=== PATIENT | female | born 1980 | race Caucasian/White ===

== ENCOUNTER 2018-06-15 18:22 | Emergency (ER) | payer OTHER ==
--- NOTE | 2018-06-15 19:35 | RADIOLOGY REPORT ---
EXAMINATION: RIGHT HAND AND RIGHT WRIST. CLINICAL INFORMATION: Sprain. COMPARISON: None TECHNIQUE: 4 views right wrist and 3 views right hand. FINDINGS: RIGHT WRIST: There is no visible acute fracture, dislocation or subluxation. No soft tissue swelling seen. RIGHT HAND: There is no visible acute fracture, dislocation or soft tissue abnormality. IMPRESSION: Unremarkable right wrist. Unremarkable right hand exam.
[2018-06-15 20:42] VITALS: BP 144/88
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
== END 2018-06-15 21:48 ==
LOC: ERH 18:22
DX: S60.221A Contusion of right hand, initial encounter (principal); M79.644 Pain in right finger(s); W22.8XXA Striking against or struck by other objects, initial encounter; Y92.9 Unspecified place or not applicable; Y93.9 Activity, unspecified
CPT/HCPCS: 73110-RT; 73130-RT